=== PATIENT | female | born 1945 | race Two or more races ===

== ENCOUNTER 2017-03-05 21:31 | Emergency (ER) | payer MEDICARE ==
[~2017-03-05] VITALS: Ht 167.6 cm; Wt 73.5 kg
[2017-03-05] MEDS ORDERED: NKM (21:42)
[2017-03-05] MEDS ORDERED: Augmentin 875mg Tab ORAL ONE (22:15)
[2017-03-05] MEDS ORDERED: TdaP Vaccine 0.5ml Syr IM ONE (22:15)
[2017-03-05] MEDS ORDERED: AUGMENTIN 875-1 EAC1 ORAL (22:22)
[2017-03-05 22:30] VITALS: BP 159/81
--- NOTE | 2017-03-05 23:25 | Emergency Room Report ---
History of Present Illness General Chief Complaint: Lower Extremity Injury Source: Patient Present Illness HPI 72-year-old male presents ED complaining of pain to the right fourth toe. States that one week ago she got a splinter in the right fourth toe. Was able to pull it out but is unsure if there is anything left. Notes persistent pain and throbbing to her right fourth toe. 7 of 10, nonradiating. worse with walking. Denies any fevers or chills. Tetanus unknown. No other aggravating relieving factors. Denies any other associated symptoms Allergies: Coded Allergies: No Known Allergies (Unverified , 03/05/17) Patient History Past Medical History: none Past Surgical History: none Pertinent Family History: none Social History: Denies: alcohol use, drug use, smoking Now: No Immunizations: UTD Reviewed Nursing Documentation: PMH: Agreed, PSxH: Agreed Nursing Documentation-PMH Past Medical History: No Stated History Review of Systems All Other Systems: negative except mentioned in HPI Physical Exam Vital Signs Date Time Temp Pulse Resp B/P Pulse Ox O2 Delivery O2 Flow Rate FiO2 03/05/17 21:39 98.2 74 16 159/81 98 Room Air Sp02 EP Interpretation: reviewed, normal General Appearance: no apparent distress, alert, GCS 15, non-toxic Head: normocephalic Eyes: bilateral eye PERRL, bilateral eye normal inspection ENT: normal ENT inspection Neck: normal inspection Respiratory: normal inspection Cardiovascular #1: normal inspection Gastrointestinal: normal inspection Rectal: deferred Genitourinary: no CVA tenderness Musculoskeletal: tender - R 4th toe. TTP. no foreign body palpated. some discharge noted near nail bed. no induration or erythema Neurologic: alert, oriented x3, responsive, motor strength/tone normal, sensory intact, speech normal Psychiatric: judgement/insight normal, memory normal, mood/affect normal, no suicidal/homicidal ideation Skin: normal inspection Lymphatic: normal inspection Medical Decision Making Diagnostic Impression: Primary Impression: Splinter of toe Qualified Codes: S90.454A - Superficial foreign body, right lesser toe(s), initial encounter Additional Impression: Cellulitis of toe of right foot ER Course Hospital Course 72-year-old female presents to ED with pain/swelling to R 4th toe. s/p splinter x 1 week Differential diagnoses include: Cellulitis, dermatitis, insect bite, abscess Clinical course Patient placed on stretcher. After initial history, physical exam reveals an elderly female in no acute distress. On exam there is no evidence of foreign body palpable. There is no signs of fluctuance. No erythema. There is some minimal discharge noted near the nailbed of the toe. Tetanus given. augmentin given. No immediately indication for nail removal at this time. We will treat with antibiotics and warm soaks Diagnosis - splinter of toe, cellulitis of toe stable and discharged to home with prescription for Augmentin. warm soaks TID. Instructed to followup with PMD/podiatry. Instructed return to ED if symptoms recur or worsen Last Vital Signs Date Time Temp Pulse Resp B/P Pulse Ox O2 Delivery O2 Flow Rate FiO2 03/05/17 22:30 98.2 16 159/81 98 Room Air 03/05/17 21:39 74 Status: improved Disposition: HOME, SELF-CARE Condition: Stable Scripts Amoxicillin/Potassium Clav 875-125* (AUGMENTIN 875-125 TABLET*) 1 Each Tablet 1 TAB ORAL TWICE A DAY, #14 TAB Prov: DYLLAN VALDEZ M.D. 03/05/17 Referrals: NON PHYSICIAN (PCP) Branden Valentin DPM, MARK Patient Instructions: Sliver Removal, Care After DYLLAN VALDEZ M.D. March 05, 2017 23:25
== END 2017-03-05 22:32 | disposition home or self-care (01) ==
LOC: EMR 21:55
DX: S90.454A Superficial foreign body, right lesser toe(s), initial encounter (principal); L03.031 Cellulitis of right toe; W45.8XXA Other foreign body or object entering through skin, initial encounter; Y93.9 Activity, unspecified; Y99.9 Unspecified external cause status; Z23 Encounter for immunization
CPT/HCPCS: 90471; 90715; 96372; 99283